=== PATIENT | female | born 1990 | race Caucasian/White ===

== ENCOUNTER 2023-11-08 15:25 | Emergency (ER) | payer BC, SELFPAY ==
[2023-11-08 15:54] VITALS: BP 108/72; PULSE 91; RESP 20; TEMP 36.8; O2SAT 100
[2023-11-08 16:29] VITALS: BP 108/72; PULSE 91; RESP 20; TEMP 36.8; O2SAT 100
--- NOTE | 2023-11-08 17:15 | ED.FEMALEGU ---
HPI - Female Genitourinary General Chief complaint: Urogenital-Female Stated complaint: UTI Time Seen by Provider: 11/08/23 16:40 Source: patient, RN notes reviewed and old records reviewed Mode of arrival: ambulatory Limitations: no limitations History of Present Illness HPI Narrative: 33 year old female who presents to [facility] with complaints of lower abdomen pain 5 days ago while resolved and lower back pain a week ago which has resolved. 2 day history of urinary frequency and vaginal itching. does have history of past UTI and yeast infections. Patient reports that she has tried OTC vaginal yeast treatment with no improvement. Patient denies any concern for STD exposure. Reports no fevers, chills or sweats, denies any nausea vomiting and diarrhea. MD elicited complaint: UTI and other (yeast infections) Onset (ago): day(s) (2 days urinary symptoms) Location of symptoms: urethra Severity: mild Vaginal discharge: white and thick/cheesy Vaginal bleeding: none Treatment prior to arrival: OTC vaginal cream Related Data Home Medications Medication Instructions Recorded Confirmed bupropion HCl 150 mg 24 hr tablet, 150 mg PO QAM 11/08/23 11/08/23 extended release dextroamphetamine-amphetamine 5 mg 5 mg PO DAILY 11/08/23 11/08/23 tablet (Adderall) hydroxychloroquine 200 mg tablet 200 mg PO DAILY 11/08/23 11/08/23 Allergies Allergy/AdvReac Type Severity Reaction Status Date / Time No Known Allergies Allergy Unverified 11/08/23 16:26 Review of Systems Review of Systems: CONSTITUTIONAL: Denies fever, chills, or sweats. CARDIOVASCULAR: Denies chest pain, palpitations, or edema. RESPIRATORY: Denies cough or dyspnea. GASTROINTESTINAL: Denies present abdominal pain, nausea, vomiting, or diarrhea. GENITOURINARY: Reports dysuria, frequency, no urgency. Denies flank pain or hematuria.reports vaginal itching SKIN: Denies rash or itching. MUSCULOSKELETAL: Denies present back pain or myalgia. Denies CVA tenderness NEUROLOGIC: Denies headache All systems reviewed & are unremarkable except as noted in HPI and below PMFSH Past Medical History Medical History ADHD (attention deficit hyperactivity disorder) Anxiety and depression Lupus Social History Social History Alcohol intake: current Alcohol use details: social Substance use type: does not use Living arrangements: with family Gender identity (if verbalized by the patient): Female Comments At time of signature, agree with nursing past medical, surgical, social and family history. There is no relevant family history pertinent to the presenting complaint Exam Narrative: GENERAL: Well-appearing, well-nourished, and in no acute distress. HEAD: Normocephalic, atraumatic. NECK: Supple.no lymphadenopathy CHEST: Clear to auscultation. No respiratory distress.SAO2 100% on room air HEART: Regular rate and rhythm. No murmur heard. Normal peripheral pulses. ABDOMEN: Soft, nontender, nondistended, normal active bowel sounds. No CVA tenderness, reports urinary frequency and white thick vaginal discharge with itching. EXTREMITIES: Normal range of motion. No edema. SKIN: Warm, dry, no rash. NEURO: No focal deficits. Alert and oriented x3. Course Course Emergency Course: Patient is aware of diagnosis, understands and agrees to treatment plan.? Anticipatory guidance given.? Patient agrees to follow-up as directed and is aware of reasons to seek care at the emergency department. Portions of this record may have been created with voice recognition software Level of Care: Express Care Visit Vital Signs Vital signs: Vital Signs Temperature 36.8 C 11/08/23 15:54 Pulse Rate 91 11/08/23 15:54 Respiratory Rate 20 11/08/23 15:54 Blood Pressure 108/72 11/08/23 15:54 Pulse Oximetry 100 11/08/23 15:54 Oxygen Delivery Room Air 11/08/23 15
[2023-11-08 17:36] LABS: EDUAAPPEAR Clear; EDUABILI Negative (Negative); EDUABLOOD Negative (Negative); EDUACOLOR1 Light/Pale; EDUAGLUCOSE Negative (Negative); EDUAKETONE Negative (Negative); EDUALEUKO 1+ (Negative); EDUANITRATE Negative (Negative); EDUAPROTEIN Negative (Negative); EDUAUROBILI 0.2
== END 2023-11-08 17:35 | disposition home or self-care (01) ==
PROVIDERS: Emergency Provider Registered Nurse; PCP Family Medicine
DX: N39.0 Urinary tract infection, site not specified (principal); B37.31 Acute candidiasis of vulva and vagina; F90.9 Attention-deficit hyperactivity disorder, unspecified type; F41.8 Other specified anxiety disorders; M32.9 Systemic lupus erythematosus, unspecified
CPT/HCPCS: 81003; 87086; 99213; G0463